=== PATIENT | female | born 1995 ===

== ENCOUNTER 2025-03-16 15:15 | Inpatient (IN) | payer OTHER ==
[~2025-03-16] VITALS: Ht 152.4 cm; Wt 66.7 kg
[~2025-03-16 15:15] MED LIST: PRENATAL TABLE1 EAC1 PO
[2025-04-01 10:20] VITALS: BP 111/68; O2SAT 98
[2025-04-01 10:45] LABS: URINE APPEARANCE Cloudy; URINE BILIRRUBIN Negative (NEGATIVE); URINE BLOOD Large; URINE COLOR Yellow; URINE KETONE Negative (NEGATIVE); URINE LEUKOCYTE Small; URINE NITRATE Negative; URINE PROTEIN Negative (NEGATIVE)
[2025-04-01 10:46] LABS: URINE BACTERIA 95.4 uL (0.0-1933); URINE EPITHELIAL CELLS 34.9 uL (0.0-38.8); URINE RBC 916.9 uL (0.0-20.8); URINE WBC 89.4 uL (0.0-23.2)
[2025-04-01 10:47] LABS: URINE GLUCOSE 100 MG/DL (NEGATIVE)
[2025-04-01] MEDS ORDERED: PRENATAL TABLE1 EAC1 PO (10:47)
[2025-04-01 10:48] LABS: BASO % 0.4 % (0.1-1.2); EOS % 1.4 % (0.7-7.0); HEMOGLOBIN 13.2 g/dL (11.2-15.7); LYMPH # 1.48 (1.18-3.74); LYMPH % 20.1 % (19.3-53.1); MEAN CORPUSCULAR HEMOGLOBIN 31.1 pg (25.6-32.2); MONO # 0.69 (0.24-0.82); MONO % 9.4 % (4.7-12.5); NEUT # 5.02 (1.56-6.13); NEUT % 68.2 % (34.0-71.1); PLATELET COUNT 253 K/uL (163-369); RED BLOOD COUNT 4.25 M/uL (3.93-5.22); RED CELL DISTRIBUTION WIDTH 13.2 % (11.6-14.4)
[2025-04-01] MEDS ORDERED: OXYTOCIN 20 UNITS/1000ML RL PIGGYBAG IV ONE ×2 (10:59→17:48)
[2025-04-01] MEDS ORDERED: CHLORHEXIDINE GLUCONATE 120 ML BOTTLE TOP ONE ×2 (10:59→15:00)
[2025-04-01] MEDS ORDERED: ERYTHROMYCIN BASE OPHT 1GM EACH TUBE OP ONE ×2 (10:59→15:00)
[2025-04-01] MEDS ORDERED: LIDOCAINE HCL 1% 10ML VIAL ONE (11:00)
[2025-04-01] MEDS ORDERED: OXYTOCIN 20 UNITS/500ML RL PIGGYBAG IV ONE (11:28)
[2025-04-01 11:29] LABS: INR 1.02; PARTIAL THROMBOPLASTIN TIME 24.6 SECONDS (22.0-34.0); PROTHROMBIN TIME 11.1 SECONDS (9.0-11.5)
[2025-04-01 11:31] LABS: ALBUMIN 2.8 gm/dL (3.4-5.0); BILIRUBIN TOTAL 0.42 mg/dL (0.3-1.2); CALCIUM 8.8 mg/dL (8.5-10.1); CREATININE SERUM 0.58 mg/dL (0.55-1.02); GFR 123.79; GLOBULINA 3.7 G/DL (2.4-3.5); POTASSIUM 3.33 mEq/L (3.5-5.1); TOTAL PROTEIN 6.5 gm/dL (6.4-8.2)
[2025-04-01] MEDS ORDERED: RINGERS SOLUTION,LACTATED 1,000 ML IV SCH (11:45)
[2025-04-01] MEDS ORDERED: OXYTOCIN 12,500 ML IV SCH (11:45)
[2025-04-01 14:23] VITALS: BP 126/76
[2025-04-01 14:36] VITALS: BP 112/75
[2025-04-01] MEDS ORDERED: OXYTOCIN 1,000 ML IV SCH (15:00)
[2025-04-01] MEDS ORDERED: IBUprofen 800 MG TABLET PO PRN (15:00)
[2025-04-01] MEDS ORDERED: ACETAMINOPHEN 500 MG GEL..CAP PO PRN (15:00)
[2025-04-01 15:16] VITALS: BP 102/61
[2025-04-01 15:21] VITALS: BP 107/67
[2025-04-01] MEDS ORDERED: BENZOCAINE/MENTHOL 90 ML BOTTLE TOP SCH (17:00)
[2025-04-01] MEDS ORDERED: HYDROCORTISONE 2.5% 30 GM TUBE RECTAL SCH (17:00)
[2025-04-01 18:00] VITALS: BP 111/70; O2SAT 97
[2025-04-02 01:24] VITALS: BP 105/68
[2025-04-02 02:33] LABS: BASO % 0.2 % (0.1-1.2); EOS # 0.04 (0.04-0.54); EOS % 0.3 % (0.7-7.0); HEMATOCRIT 34.6 % (34.1-44.9); LYMPH # 1.82 (1.18-3.74); LYMPH % 13.9 % (19.3-53.1); MEAN CORPUSCULAR HEMOGLOBIN 31.9 pg (25.6-32.2); MONO # 1.61 (0.24-0.82); MONO % 12.3 % (4.7-12.5); NEUT # 9.57 (1.56-6.13); NEUT % 72.9 % (34.0-71.1); PLATELET COUNT 233 K/uL (163-369); RED BLOOD COUNT 3.76 M/uL (3.93-5.22); RED CELL DISTRIBUTION WIDTH 13.2 % (11.6-14.4)
[2025-04-02] MEDS ORDERED: HYPERRHO S-1500 UNIT IM (07:47)
[2025-04-02] MEDS ORDERED: RHOGAM ULTR1500 UNIT IM (07:47)
[2025-04-02] MEDS ORDERED: FF) RHO(D) IMMUNE GLOBULIN (POM) IM SCH (08:00)
[2025-04-02 09:15] VITALS: BP 95/61
[2025-04-02 16:43] VITALS: BP 104/69
[2025-04-03] VITALS: BP 110/75
[2025-04-03 09:16] VITALS: BP 113/78
== END 2025-04-03 14:22 | disposition home or self-care (01) | DRG 807 ==
LOC: OB/GYN 03-24 15:15 → LDR 04-01 09:55 → OB/GYN 04-01 09:55
PROVIDERS: ADMIT Specialist; ATTEND Specialist
PROC: 10E0XZZ Delivery of Products of Conception, External Approach (ICD-10-PCS; principal; 2025-04-01)
PROC: 4A1HXCZ Monitoring of Products of Conception, Cardiac Rate, External Approach (ICD-10-PCS; 2025-04-01)
DX: O80 Encounter for full-term uncomplicated delivery (principal); Z37.0 Single live birth; Z3A.40 40 weeks gestation of pregnancy